=== PATIENT | female | born 1980 | race Caucasian/White ===

== ENCOUNTER 2019-06-27 22:50 | Emergency (ER) | payer OTHER ==
[~2019-06-27] VITALS: Ht 160 cm; Wt 74.8 kg
[2019-06-27 23:04] VITALS: Ht 160 cm; Wt 74.8 kg
[2019-06-28 00:11] VITALS: BP 125/76
== END 2019-06-28 00:11 | disposition home or self-care (01) ==
LOC: ED 22:50
DX: Z02.89 Encounter for other administrative examinations (principal)